=== PATIENT | female | born 1975 | race Caucasian/White ===

== ENCOUNTER 2021-11-26 07:25 | Emergency (ER) | payer SELFPAY ==
[~2021-11-26] VITALS: Ht 167.6 cm; Wt 70.0 kg
[2021-11-26 07:37] VITALS: BP 140/113
[2021-11-26 07:38] VITALS: BP 154/93
[2021-11-26 07:45] VITALS: BP 117/83
[2021-11-26 08:00] VITALS: BP 132/102
[2021-11-26 08:15] VITALS: BP 117/82
[2021-11-26] MEDS ORDERED: AMOXICILLIN500 M2 PO (08:23)
[2021-11-26 08:45] VITALS: BP 117/82
== END 2021-11-26 08:45 | disposition home or self-care (01) | DRG 153 ==
LOC: ED 07:25
DX: J02.9 Acute pharyngitis, unspecified (principal); J45.909 Unspecified asthma, uncomplicated; F17.210 Nicotine dependence, cigarettes, uncomplicated; Z20.822 Contact with and (suspected) exposure to COVID-19

== ENCOUNTER 2021-12-01 09:27 | Emergency (ER) | payer SELFPAY ==
[~2021-12-01] VITALS: Ht 167.6 cm; Wt 82.0 kg
[~2021-12-01 09:27] MED LIST: AMOXICILLIN500 M2 PO
[2021-12-01] MEDS ORDERED: PROAIR HFA108 MCG/AC (09:51)
[2021-12-01] MEDS ORDERED: BL IBUPROFEN200 MG PO (09:52)
[2021-12-01] MEDS ORDERED: LIDOCAINE HCL VIS2 % PO (11:19)
[2021-12-01] MEDS ORDERED: CLEOCIN300 MG PO (11:19)
[2021-12-01 11:33] VITALS: BP 132/75
== END 2021-12-01 11:35 | disposition home or self-care (01) | DRG 153 ==
LOC: ED 09:27
DX: J02.9 Acute pharyngitis, unspecified (principal); J45.909 Unspecified asthma, uncomplicated; F17.200 Nicotine dependence, unspecified, uncomplicated; Z20.822 Contact with and (suspected) exposure to COVID-19

== ENCOUNTER 2021-12-12 20:26 | Emergency (ER) | payer SELFPAY ==
[~2021-12-12] VITALS: Ht 165.1 cm; Wt 79.0 kg
[2021-12-12] VITALS (9 sets, daily range): BP systolic 113–143; BP diastolic 64–96
[~2021-12-12 20:26] MED LIST changes: +BL IBUPROFEN200 MG PO; +CLEOCIN300 MG PO; +LIDOCAINE HCL VIS2 % PO; +PROAIR HFA108 MCG/AC
[2021-12-12] MEDS ORDERED: MEDICAL MARIJUANA (20:53)
[2021-12-12 21:32] LABS: HEMATOCRIT 41.7 % (37.0-47.0); HEMOGLOBIN 13.4 g/dl (12.0-16.0); IMMATURE GRANULOCYTES 0.7 % (0.0-5.0); MEAN CELL VOLUME 93.9 fL CALC (80.0-100.0); MEAN CORPUSCULAR HGB 30.2 pG CALC (26.0-32.0); MEAN CORPUSCULAR HGB CONC 32.1 g/dL CAL (32.0-36.0); NEUT# 9.16 thou/uL (2.00-7.15); RED BLOOD COUNT 4.44 mill/uL (4.20-5.60); RED CELL DISTRI WIDTH 13.7 % (11.5-15.5)
[2021-12-12 21:56] LABS: ALBUMIN 4.1 g/dL (3.2-5.0); ALKALINE PHOSPHATASE 85 u/l (38-126); AMYLASE 96 u/l (30-110); ANION GAP 11 (6-22 (CALC)); BILIRUBIN, TOTAL 0.4 mg/dL (0.0-1.4); BUN 17 mg/dL (7-17); BUN/CREATININE RATIO 19 (12-20 (CALC)); CARBON DIOXIDE 27 mmol/l (22-30); CHLORIDE 103 mmol/l (95-108); CREATININE 0.9 mg/dL (0.5-1.0); GFR > 60 ML/MIN (>=60 (CALC)); GFR FOR AFR.AMER. > 60 ML/MIN (>=60 (CALC)); LIPASE 111 u/l (23-300); POTASSIUM 3.7 mmol/l (3.5-5.1); SGOT/AST 25 u/l (14-36); SODIUM 138 mmol/l (137-146); TOTAL PROTEIN 7.6 g/dL (6.3-8.2)
[2021-12-12 22:00] LABS: ACT PARTIAL THROMBO TIME 28.2 SECONDS (20.0-32.5); PROTHROMBIN TIME 10.4 SECONDS (9.0-12.5)
[2021-12-12 22:05] LABS: D-DIMER 5.74 mg/L (0.19-0.60)
[2021-12-12 22:08] LABS: MYOGLOBIN 36 ng/mL (0 - 62)
[2021-12-13] MEDS ORDERED: PROTONIX40 M2 PO (00:18)
[2021-12-13 00:22] VITALS: BP 100/76
[2021-12-13 00:40] VITALS: BP 100/76
== END 2021-12-13 00:47 | disposition home or self-care (01) | DRG 392 ==
LOC: ED 20:26
PROVIDERS: Family Medicine
DX: K20.90 Esophagitis, unspecified without bleeding (principal); L50.9 Urticaria, unspecified; J45.909 Unspecified asthma, uncomplicated; F41.9 Anxiety disorder, unspecified; F17.200 Nicotine dependence, unspecified, uncomplicated
CPT/HCPCS: Q9967

== ENCOUNTER 2021-12-20 08:14 | Emergency (ER) | payer SELFPAY ==
[2021-12-20] VITALS (12 sets, daily range): BP systolic 100–150; BP diastolic 57–115
[~2021-12-20] VITALS: Ht 165.1 cm; Wt 79.6 kg
[~2021-12-20 08:14] MED LIST changes: +MEDICAL MARIJUANA; +PROTONIX40 M2 PO
[2021-12-20] MEDS ORDERED: MEDDOSEPAK PO (09:54)
== END 2021-12-20 11:21 | disposition home or self-care (01) | DRG 916 ==
LOC: ED 08:14
DX: T78.40XA Allergy, unspecified, initial encounter (principal); J45.909 Unspecified asthma, uncomplicated; F41.9 Anxiety disorder, unspecified; X58.XXXA Exposure to other specified factors, initial encounter

== ENCOUNTER 2022-04-12 03:51 | Emergency (ER) | payer SELFPAY ==
[~2022-04-12] VITALS: Ht 165.1 cm; Wt 81.8 kg
[~2022-04-12 03:51] MED LIST changes: +MEDDOSEPAK PO
[2022-04-12] MEDS ORDERED: PREDNISONE50 MG PO ×2 (05:49→12:21)
[2022-04-12 05:57] VITALS: BP 150/95
== END 2022-04-12 06:00 | disposition home or self-care (01) | DRG 607 ==
LOC: ED 04:09
DX: L50.0 Allergic urticaria (principal); J45.909 Unspecified asthma, uncomplicated; F41.9 Anxiety disorder, unspecified; F17.200 Nicotine dependence, unspecified, uncomplicated